=== PATIENT | male | born 2000 | race Caucasian/White ===

== ENCOUNTER 2020-07-29 22:10 | Emergency (ER) | payer OTHER ==
[~2020-07-29] VITALS: Ht 180.3 cm; Wt 65.9 kg
[2020-07-29] MEDS ORDERED: FentaNYL CITRATE PF 100 MCG/2 ML VIAL IVP ONE (22:30)
[2020-07-29] MEDS ORDERED: SODIUM CHLORIDE 0.9% 2,000 ML IV ONE (22:30)
[2020-07-29 22:49] LABS: BASOPHILS % (AUTO) 0.7 % (0.0-2.0); EOSINOPHILS % (AUTO) 0.3 % (1.0-6.0); HEMATOCRIT 45.4 % (41-53); LYMPHOCYTES # (AUTO) 4.6 K/uL (1.0-4.8); LYMPHOCYTES % (AUTO) 48.3 % (22.0-44.0); MEAN CORPUSCULAR HEMOGLOBIN 30.2 pg (26.0-34.0); MEAN CORPUSCULAR HGB CONC 32.9 G/dL (31.0-37.0); MEAN CORPUSCULAR VOLUME 92 fL (80-100); MONOCYTES % (AUTO) 10.4 % (2.0-9.0); NEUTROPHILS # (AUTO) 3.8 K/uL (1.8-7.7); NEUTROPHILS % (AUTO) 40.3 % (40.0-70.0); PLATELET COUNT (AUTO) 278 K/uL (150-450); RED BLOOD CELL COUNT(AUTO) 4.95 MIL/uL (4.50-5.90)
[2020-07-29 22:56] LABS: ANION GAP 15 mmol/L (8-16); CALCIUM, TOTAL 9.4 mg/dL (8.8-10.5); CARBON DIOXIDE 23 mmol/L (22-29); CHLORIDE 102 mmol/L (98-107); CREATININE 2.14 mg/dL (0.60-1.30); GLOMERULAR FILTR. RATE CALC 40 mL/min (>60); GLUCOSE,RANDOM 155 mg/dL (70-110); POTASSIUM 3.6 mmol/L (3.5-5.1); SODIUM SERUM 140 mmol/L (136-145); UREA NITROGEN, BLOOD 19 mg/dL (7-18)
[2020-07-29 22:56] LABS: COVID AG,FIA SOURCE NASOPHARYNGEAL
[2020-07-29] MEDS ORDERED: LIDOCAINE 2%/EPI 1:200,000/PF 10 ML VIAL ID ONE (23:00)
[2020-07-29] MEDS ORDERED: PERTUSS(ACELL),DIPH,TET VAC/PF 0.5 ML SYRINGE IM. ONE (23:00)
[2020-07-29] MEDS ORDERED: CeFAZolin 1 GM/DEXTROSE 50 ML IV ONE (23:00)
[2020-07-29 23:02] LABS: PROTHROMBIN TIME 10.9 SEC (9.4-11.6)
[2020-07-29 23:21] LABS: ALANINE AMINOTRANSFERASE 28 U/L (12-78); ALBUMIN 4.8 g/dL (3.4-5.0); ALKALINE PHOSPHATASE 96 U/L (46-116); ASPARTATE AMINOTRANSFERASE 28 U/L (15-37); BILIRUBIN,TOTAL 0.5 mg/dL (0.1-1.0); CREATINE KINASE, TOTAL ONLY 512 U/L (39-308); TOTAL PROTEIN, SERUM 7.4 g/dL (6.4-8.2)
[2020-07-30] MEDS ORDERED: POVIDONE-IODINE 10% 120 ML SOLUTION TP ONE (00:30)
[2020-07-30 01:04] LABS: AMPHET/METH SCREEN,URINE NEGATIVE (NEGATIVE); BARBITURATE SCREEN, URINE NEGATIVE (NEGATIVE); BENZODIAZEPINES SCREEN,URINE NEGATIVE (NEGATIVE); CANNABINOID SCREEN,URINE POSITIVE (NEGATIVE); COCAINE SCREEN,URINE NEGATIVE (NEGATIVE); METHADONE SCREEN, URINE NEGATIVE (NEGATIVE); OPIATE SCREEN,URINE NEGATIVE (NEGATIVE)
[2020-07-30 01:06] LABS: PHENCYCLIDINE SCREEN,URINE NEGATIVE (NEGATIVE)
[2020-07-30] MEDS ORDERED: FentaNYL CITRATE PF 100 MCG/2 ML VIAL IVP ONE (01:15)
[2020-07-30 02:22] LABS: CALCIUM, TOTAL 8.3 mg/dL (8.8-10.5); CREATININE 1.52 mg/dL (0.60-1.30); POTASSIUM 3.7 mmol/L (3.5-5.1)
[2020-07-30 02:33] LABS: LACTIC ACID 0.9 mmol/L (0.4-2.0)
[2020-07-30] MEDS ORDERED: OxyCODONE HCL/ACETAMINOPHEN 5-325 MG TABLET PO ONE (04:00)
[2020-07-30 04:05] VITALS: BP 131/69
== END 2020-07-30 04:50 | disposition home or self-care (01) ==
LOC: EMS 22:11
DX: S81.812A Laceration without foreign body, left lower leg, initial encounter (principal); Z20.822 Contact with and (suspected) exposure to COVID-19; W34.09XA Accidental discharge from other specified firearms, initial encounter; Y93.89 Activity, other specified; Y92.481 Parking lot as the place of occurrence of the external cause; Y99.8 Other external cause status
CPT/HCPCS: 12041; 36415; 73560; 73590; 80048; 80053; 80307; 82550; 83605; 85025; 85045; 85610; 85730; 86850; 86900; 86901; 87426; 90471; 90715; 96361; 96365; 96375; 96376; 99291; G0480; J0690; J3010 ×2; 12001

== ENCOUNTER 2020-08-12 12:52 | Emergency (ER) | payer OTHER ==
[~2020-08-12] VITALS: Ht 180.3 cm; Wt 65.9 kg
[2020-08-12 12:58] VITALS: BP 151/87
== END 2020-08-12 14:10 | disposition home or self-care (01) ==
LOC: EMS 12:55
DX: Z48.01 Encounter for change or removal of surgical wound dressing (principal)
CPT/HCPCS: 99281; Z7502